=== PATIENT | female | born 1980 | race Caucasian/White ===

== ENCOUNTER 2016-12-25 19:13 | Emergency (ER) | payer OTHER ==
[~2016-12-25] VITALS: Ht 160 cm; Wt 51.0 kg
[~2016-12-25 19:13] MED LIST: KEFLEX500 MG PO; NORCO 5/3251 TABLET PO
[2016-12-25 20:09] LABS: ADD MIUA? YES; BILIRUBIN NEGATIVE; BLOOD LARGE; COLOR YELLOW ((YELLOW)); GLUCOSE (STRIP) NEGATIVE; KETONES 20; LEUKOCYTES NEGATIVE; NITRITE NEGATIVE; PROTEIN (STRIP) NEGATIVE; UROBILINOGEN 0.2 MG/DL (0.2-1.0)
[2016-12-25 20:22] LABS: BACTERIA NONE SEEN /HPF; EPITHELIAL CELLS RARE /HPF; MUCUS TRACE /LPF; RED BLOOD CELLS TNTC /HPF (0-5); UCUL ADDED? NO; WHITE BLOOD CELLS 0-5 /HPF (0-5)
[2016-12-25 20:35] LABS: HEMATOCRIT 40.5 % (36.0-46.0); MCHC 32.8 G/DL (30.0-36.0); MCV 82.2 FL (83-99); MEAN PLAT.VOLUME 9.7 uM^3 (9.5-12.4); PLATELET COUNT 259 K/uL (156-360); RBC DIS.WIDTH-SD 38.8 % (39-53); RED BLOOD COUNT 4.93 M/uL (3.80-5.20); WHITE BLOOD COUNT 8.8 K/uL (4.1-10.2)
[2016-12-25 21:05] LABS: CHLORIDE 106 mEq/L (99-109); POTASSIUM 4.2 mEq/L (3.7-5.4); SODIUM 140 mEq/L (136-147)
[2016-12-25 21:07] LABS: GLUCOSE 106 mg/dL (70-99)
[2016-12-25 21:08] LABS: ANION GAP 10 MEQ/L (2-14)
[2016-12-25 21:09] LABS: TOTAL BILIRUBIN 1.2 mg/dL (0.0-1.0)
[2016-12-25 21:11] LABS: ALKALINE PHOSPHATASE 51 IU/L (3-129); GFR ESTIMATE (CALCULATED) > 59 mL/min/
[2016-12-25 21:12] LABS: UREA NITROGEN (BUN) 8 mg/dL (9-23)
[2016-12-25 21:20] LABS: QUANTITATIVE HCG < 4.0 MIU/ML
[2016-12-25] MEDS ORDERED: ZOFRAN ODT4 MG PO (22:09)
[2016-12-25] MEDS ORDERED: MOTRIN600 MG PO (22:09)
[2016-12-25] MEDS ORDERED: TORADOL10 MG PO (22:19)
[2016-12-25 22:22] VITALS: BP 102/65
== END 2016-12-25 22:23 | disposition home or self-care (01) ==
LOC: EME 19:13
DX: N83.202 Unspecified ovarian cyst, left side (principal); R11.0 Nausea; R00.0 Tachycardia, unspecified
CPT/HCPCS: 74177; 80053; 81003; 84702; 85027; 99281; 99284; J1885; J2405; J7040

== ENCOUNTER 2017-02-12 11:31 | Day surgery (SDC) | payer OTHER ==
[~2017-02-12] VITALS: Ht 160 cm; Wt 50.0 kg
[~2017-02-12 11:31] MED LIST changes: +MOTRIN600 MG PO; +TORADOL10 MG PO; +ZOFRAN ODT4 MG PO
[2017-02-12 12:49] VITALS: BP 109/79
[2017-02-12] MEDS ORDERED: IBUPROFEN800 MG PO (15:36)
[2017-02-12] MEDS ORDERED: DOXYCYCLINE HY100 M3 PO (15:36)
[2017-02-12] MEDS ORDERED: ENDOCET 5-3251 EACH PO (15:36)
[2017-02-12 16:45] VITALS: BP 104/56
[2017-02-12 17:35] VITALS: BP 103/62
[2017-02-12 18:55] VITALS: BP 105/63
[2017-02-12 20:09] VITALS: BP 103/61
[2017-02-12 21:37] VITALS: BP 96/57
[2017-02-13 01:26] VITALS: BP 102/61
[2017-02-13 03:26] VITALS: BP 98/54
[2017-02-13 07:10] VITALS: BP 95/53
== END 2017-02-13 10:59 | disposition home or self-care (01) ==
LOC: SDC → 2SOUTH 15:38 → 2EAST 21:34
PROC: 0UB14ZX Excision of Left Ovary, Percutaneous Endoscopic Approach, Diagnostic (ICD-10-PCS; principal; 2017-02-12)
DX: N83.201 Unspecified ovarian cyst, right side (principal); Z82.49 Family history of ischemic heart disease and other diseases of the circulatory system
CPT/HCPCS: 88305; G0378; J0131; J0690; J1100; J1170; J1885; J2175; J2250; J2405; J2710; J2765; J3010; J7120